=== PATIENT | female | born 1955 | race Two or more races ===

== ENCOUNTER 2020-04-25 08:18 | Outpatient (CLI) | payer OTHER ==
[~2020-04-25 08:18] MED LIST: GILTUSS LIQUID237 M1 PO
== END 2020-04-25 08:23 | disposition home or self-care (01) ==
LOC: NUCLEAR 08:18
PROVIDERS: ATTEND Internal Medicine Cardiovascular Disease
DX: I20.8 Other forms of angina pectoris (principal)
CPT/HCPCS: 78452; 93017; A9500